=== PATIENT | female | born 1995 | race African-American/Black ===

== ENCOUNTER 2021-06-24 01:36 | Emergency (ER) | payer OTHER ==
[2021-06-24 01:40] VITALS: BP 108/68
--- NOTE | 2021-06-24 02:40 | XRay Report ---
RIGHT KNEE, 3 VIEWS INDICATION / CLINICAL INFORMATION: INJURY. COMPARISON: None available. FINDINGS: No fracture, malalignment, or joint effusion. Soft tissues are unremarkable. IMPRESSION: Negative exam. Signer Name: Abby Llanes MD Signed: 06/24/2021 2:35 AM Workstation Name: [id number]
[2021-06-24] MEDS ORDERED: ACETAMINOPHEN 500 MG TAB PO ONE (05:04)
[2021-06-24] MEDS ORDERED: IBUPROFEN 600 MG TAB PO ONE (05:04)
--- NOTE | 2021-06-24 05:09 | Emergency Department Report ---
ED Fall HPI - General Chief Complaint: Extremity Injury, Lower Stated Complaint: RIGHT KNEE INJURY Source: patient Mode of arrival: Ambulatory - History of Present Illness Initial Comments: Patient is a 26-year-old [place] female with no past medical history presented to the ED with complaint of acute onset persistent severe right knee pain after she slipped and fell down on concrete floor of the skating rink when trying to schedule about 12 hours ago. Patient states that she landed on her right knee during the fall. Patient states that she has not been able to bear weight adequately on the right leg because of worsening right knee pain. Patient denies head or neck injuries, hip pain, low back pain, loss of consciousness, chest pain or shortness of breath, numbness and tingling or wea kness of lower and upper extremities bilaterally. MD Complaint: fall, other (right knee pain) -: Sudden, hour(s) (12) Fall From: standing When Fall Occurred: other (12 hours ago) Fall Witnessed: yes, by family Place Fall Occurred: other (skating ring) Loss of Consciousness: none Prolonged Down Time?: no Symptoms Prior to Fall: none Location: other (right knee) Location - Extremities: Right: Knee (pain) Severity: severe Severity scale (0 -10): 8 Quality: sharp, aching Context: tripped/slipped Associated Symptoms: denies. denies: headache, neck pain, numbness, weakness, chest paint, shortness of breath, abdominal pain, hematuria, unable to walk, lightheaded, vertigo, confusion - Related Data Previous Rx's Medication Instructions Recorded Last Taken Type Baclofen 20 mg PO Q12H PRN #20 tablet 06/24/21 Unknown Rx Ibuprofen [Motrin] 600 mg PO Q8H PRN #30 tablet 06/24/21 Unknown Rx traMADoL [Ultram] 50 mg PO Q6HR PRN #10 tablet 06/24/21 Unknown Rx Allergies Allergy/AdvReac Type Severity Reaction Status Date / Time No Known Allergies Allergy Unverified 06/24/21 01:40 ED Review of Systems ROS: Stated complaint: RIGHT KNEE INJURY Other details as noted in HPI Constitutional: denies: chills, fever Eyes: denies: eye pain, eye discharge, vision change ENT: denies: ear pain, throat pain Respiratory: denies: cough, shortness of breath, wheezing Cardiovascular: denies: chest pain, palpitations Endocrine: no symptoms reported Gastrointestinal: denies: abdominal pain, nausea, vomiting, diarrhea Genitourinary: denies: urgency, dysuria, discharge Musculoskeletal: joint swelling (right knee), arthralgia (right knee pain). denies: back pain Skin: denies: rash, lesions Neurological: denies: headache, weakness, paresthesias Psychiatric: denies: anxiety, depression Hematological/Lymphatic: denies: easy bleeding, easy bruising ED Past Medical Hx - Past Medical History Previous Medical History?: No - Surgical History Past Surgical History?: No - Medications Home Medications: Home Medications Medication Instructions Recorded Confirmed Last Taken Type Baclofen 20 mg PO Q12H PRN #20 tablet 06/24/21 Unknown Rx Ibuprofen [Motrin] 600 mg PO Q8H PRN #30 tablet 06/24/21 Unknown Rx traMADoL [Ultram] 50 mg PO Q6HR PRN #10 tablet 06/24/21 Unknown Rx ED Physical Exam - General Limitations: No Limitations General appearance: alert, in no apparent distress - Head Head exam: Present: atraumatic, normocephalic, normal inspection - Eye Eye exam: Present: normal appearance, PERRL, EOMI Pupils: Present: normal accommodation - ENT ENT exam: Present: normal exam, normal orophraynx, mucous membranes moist, TM's normal bilaterally, normal external ear exam - Neck Neck exam: Present: normal inspection, full ROM. Absent: tenderness - Respiratory Respiratory exam: Present: normal lung sounds bilaterally. Absent: respiratory distress, wheezes, rales, chest wall tenderness, accessory muscle use, decreased breath sounds - Cardiovascular Cardiovascular Exam: Present: regular rate, normal rhythm, normal heart sounds. Absent: systolic murmur, diastolic murmur, rubs, gallop - GI/Abdominal GI/Abdominal exam: Present: soft, normal bowel sounds. Absent: tenderness, rebound, hyperactive bowel sounds, hypoactive bowel sounds, mass - Extremities Exam Extremities exam: Present: normal inspection, tenderness (Palpable right knee tenderness, mild swelling with limited range of motion due to pain), normal capillary refill, joint swelling (Mild right knee swelling). Absent: full ROM (Limited range of motion of right knee due to pain), pedal edema, calf tenderness - Back Exam Back exam: Present: normal inspection, full ROM. Absent: tenderness, CVA tenderness (R), CVA tenderness (L), muscle spasm, paraspinal tenderness, vertebral tenderness - Neurological Exam Neurological exam: Present: alert, oriented X3, CN II-XII intact, normal gait, reflexes normal - Psychiatric Psychiatric exam: Present: normal affect, normal mood - Skin Skin exam: Present: warm, dry, intact, normal color. Absent: rash ED Course Vital Signs 06/24/21 01:38 Temperature 98.0 F Pulse Rate 94 H Respiratory 18 Rate Blood Pressure 108/68 O2 Sat by Pulse 98 Oximetry ED Medical Decision Making - Radiology Data Radiology results: report reviewed, image reviewed [facility] [address] [place] [address] XRay Report Signed Patient: DEDE CASTRO MR#: [id number] : 1995 Acct:[id number] Age/Sex: 26 / F ADM Date: 06/24/21 Loc: ED Attending Dr: Ordering Physician: ED MD IBIS Date of Service: 06/24/21 Procedure(s): XR knee 3V RT Accession Number(s): [id number] cc: ED DOCMD Fluoro Time In Minutes: RIGHT KNEE, 3 VIEWS INDICATION / CLINICAL INFORMATION: INJURY. COMPARISON: None available. FINDINGS: No fracture, malalignment, or joint effusion. Soft tissues are unremarkable. IMPRESSION: Negative exam. Signer Name: Abby Llanes MD Signed: 06/24/2021 2:35 AM Workstation Name: [id number] Transcribed By: JR Dictated By: Abby Llanes MD Electronically Authenticated By: Abby Llanes MD Signed Date/Time: 06/24/21234 DD/ 4 TD/TT: - Medical Decision Making This is a 26-year-old [place] female with no past medical history presented to the ED with complaint of acute onset persistent severe right knee pain after she slipped and fell down on concrete floor of the skating rink when trying to schedule about 12 hours ago. Patient states that she landed on her right knee during the fall. Patient states that she has not been able to bear weight adequately on the right leg because of worsening right knee pain. In the ED, patient is alert and oriented x3 and is not in any distress. Patient however appears to be in pain. Patient was treated for pain in the ED and right knee x-ray showed no acute fractures or subluxations. Patient's injuries are likely musculoskeletal. Patient's right knee was splinted with Hema wrap and the patient will discharge home on pain medications and advised to follow-up with her primary care physician in 5 to 7 days for reevaluation or return to the ED immediately if symptoms get worse. - Differential Diagnosis Knee sprain; knee contusion; knee muscle strain; knee fracture Critical care attestation.: If time is entered above; I have spent that time in minutes in the direct care of this critically ill patient, excluding procedure time. ED Disposition Clinical Impression: Contusion of right knee, initial encounter Sprain of collateral ligament of right knee Qualifiers: Encounter type: initial encounter Qualified Code(s): S83.401A - Sprain of unspecified collateral ligament of right knee, initial encounter Disposition: HOME / SELF CARE / HOMELESS Is pt being admited?: No Does the pt Need Aspirin: No Condition: Stable Instructions: Knee Sprain, Adult, [id number], Contusion, [id number], Combined Knee Ligament Sprain Additional Instructions: The right knee x-ray showed no acute fractures or subluxations. Therefore take medication with food, drink plenty of fluids and follow-up with your primary care physician in 7 to 10 days for reevaluation. Return to the ED immediately if symptoms get worse. Prescriptions: Baclofen 20 mg PO Q12H PRN #20 tablet PRN Reason: Muscle Spasm Ibuprofen [Motrin] 600 mg PO Q8H PRN #30 tablet PRN Reason: Pain traMADoL [Ultram] 50 mg PO Q6HR PRN #10 tablet PRN Reason: Pain Referrals: [facility] [Provider Group] - 7-10 days Forms: Work/School Release Form(ED) Time of Disposition: 05:11 Print Language: HEBREW
== END 2021-06-24 05:37 | disposition home or self-care (01) ==
LOC: ED 01:36
DX: S83.401A Sprain of unspecified collateral ligament of right knee, initial encounter (principal); S80.01XA Contusion of right knee, initial encounter; M25.561 Pain in right knee; Z79.899 Other long term (current) drug therapy; Y93.89 Activity, other specified; Y92.89 Other specified places as the place of occurrence of the external cause; Y99.8 Other external cause status
CPT/HCPCS: 99283